=== PATIENT | male | born 1970 | race Caucasian/White ===

== ENCOUNTER 2017-01-09 09:56 | Emergency (ER) | payer OTHER ==
[2017-01-09] MEDS ORDERED: Sodium Chloride 0.9% 10 ML Syringe FLUSH PRN (09:57)
--- NOTE | 2017-01-09 10:05 | EDM.PDOC ---
ED HPI SEIZURE COMPLAINT - General Chief Complaint: Syncope Stated Complaint: SEIZURE Time Seen by Provider: 01/09/17 10:00 Source: Reports: Patient, EMS History Limitations: Reports: Other (Eye witness not available to describe seizure) - History of Present Illness INITIAL COMMENTS - FREE TEXT/NARRATIVE: 46 yo male presents from work via EMS after a self-limited seizure. Had another seizure yrs ago with no cause found. Is not on seizure meds. Did not bite his tongue or have urinary incontinence. Got a normal amount of sleep last night. Drinks 3-4 beers per day. Takes ibuprofen or naproxen most days for neck and back pain. No prescription meds. Symptom Onset Date: 01/09/17 Symptom Onset Time: 09:00 Timing/Duration: Reports: minutes:, resolved prior to arrival Event Occurred (Where): work Event (Witnessed/Unwitnessed): witnessed Location: Reports: generalized Quality: Reports: generalized shaking Severity: moderate Context: Reports: recent ETOH (Drinks a moderate amount daily, no recent change in alcohol dose or frequency.) Pre Event Symptom(s): Reports: other (none) Event Symptoms: Reports: syncope. Denies: incontinence, tongue biting Post Event Symptoms: Reports: confused, postictal duration: (minutes) Associated Injuries: Reports: other (no injuries) Treatment(s) GLOBAL PROFESSIONAL: Reports: Other (see below) (none) - Related Data Allergies/ADRs: Allergies Allergy/AdvReac Type Severity Reaction Status Date / Time No Known Allergies Allergy Verified 01/09/17 10:17 Home Meds: Home Meds NK [No Known Home Meds] 01/09/17 [History] ED ROS GENERAL - Review of Systems Review Of Systems: See Below Constitutional: Reports: no symptoms HEENT: Reports: No symptoms Respiratory: Reports: No Symptoms Cardiovascular: Reports: No symptoms Endocrine: Reports: no symptoms GI/Abdominal: Reports: No symptoms : Reports: no symptoms Musculoskeletal: Reports: no symptoms Skin: Reports: no symptoms Neurological: Reports: No Symptoms Psychiatric: Reports: No symptoms Hematologic/Lymphatic: Reports: no symptoms - Physical Exam Exam: See Below Exam Limited By: No limitations General Appearance: alert, WD/WN, no apparent distress Eye Exam: bilateral eye: normal inspection Ears: normal external exam, normal canal, hearing grossly normal Nose: normal inspection, normal mucosa, no blood Throat/Mouth: Normal inspection, Normal lips, Normal teeth, Normal gums, Normal oropharynx, Normal voice, No airway compromise Head Exam: atraumatic, normocephalic Neck: normal inspection, supple, non-tender Respiratory/Chest: no respiratory distress, lungs clear, normal breath sounds, no accessory muscle use Cardiovascular: regular rate, rhythm, no edema GI/Abdominal: normal bowel sounds, soft, non tender, no organomegaly, no distention Neuro Exam (Abbreviated): alert, oriented, CN II-XII intact, normal cognition, no motor/sensory deficits Back Exam: normal inspection Extremities: normal inspection, normal range of motion, non-tender, no pedal edema Psychiatric: normal affect, normal mood Skin Exam: Warm, Dry, Intact, Normal color, No rash Course - Vital Signs Text/Narrative:: saline lock- Head CT scan-negative Last Recorded V/S: Last Vital Signs Temp 36.4 C 01/09/17 10:00 Pulse 102 H 01/09/17 10:00 Resp 18 01/09/17 10:00 BP 141/79 H 01/09/17 10:00 Pulse Ox 97 01/09/17 10:00 - Orders/Labs/Meds Orders: Active Orders 24 hr Category Date Time Status Head wo Cont [CT] Stat Exams 01/09/17 10:13 Ordered Sodium Chloride 0.9% [Saline Flush] Med 01/09/17 09:57 Active 10 ml FLUSH ASDIRECTED PRN Saline Lock Insert [OM.PC] Routine Oth 01/09/17 09:57 Ordered Medication Orders Sodium Chloride (Saline Flush) 10 ml FLUSH ASDIRECTED PRN PRN Reason: Keep Vein Open Labs: Laboratory Tests 01/09/17 01/09/17 01/09/17 Range/Units 10:02 10:02 10:21 Sodium 133 L (135-145) mmol/L Potassium 3.7 (3.5-5.3) mmol/L Chloride 101 (100-110) mmol/L Carbon Dioxide 23 (23-29) mmol/L BUN 13 (5-20) mg/dL Creatinine 0.9 (0.6-1.3) mg/dL Est Cr Clr Drug Dosing TNP Estimated GFR (MDRD) > 60 (>60) BUN/Creatinine Ratio 14.4 (9-20) Glucose 107 (80-116) mg/dL Calcium 8.7 (8.6-10.2) mg/dL AST 39 H (5-27) IU/L Urine Opiates Screen Negative (NEGATIVE) Ur Oxycodone Screen Negative (NEGATIVE) Ur Propoxyphene Screen Negative (NEGATIVE) Ur Barbituates Screen Negative (NEGATIVE) Ur Tricyclics Screen Negative (NEGATIVE) Ur Phencyclidine Scrn Negative (NEGATIVE) Ur Amphetamine Screen Negative (NEGATIVE) Urine MDMA Screen Negative (NEGATIVE) U Benzodiazepines Scrn Negative (NEGATIVE) U Cocaine Metab Screen Negative (NEGATIVE) U Marijuana (THC) Screen Negative (NEGATIVE) Meds: Medications Generic Name Dose Route Start Last Admin Trade Name Freq PRN Reason Stop Dose Admin Sodium Chloride 10 ml 01/09/17 09:57 Saline Flush FLUSH ASDIRECTED PRN Keep Vein Open Departure - Departure Time of Disposition: 11:10 Disposition: Home, Self-Care 01 Condition: fair Clinical Impression: Seizure, Elevated AST (SGOT), Excessive consumption of ethanol - My Orders Last 24 Hours: My Active Orders 01/09/17 09:57 Sodium Chloride 0.9% [Saline Flush] 10 ml FLUSH ASDIRECTED PRN Saline Lock Insert [OM.PC] Routine 01/09/17 10:13 Head wo Cont [CT] Stat - Assessment/Plan Last 24 Hours: My Active Orders 01/09/17 09:57 Sodium Chloride 0.9% [Saline Flush] 10 ml FLUSH ASDIRECTED PRN Saline Lock Insert [OM.PC] Routine 01/09/17 10:13 Head wo Cont [CT] Stat
[2017-01-09 10:19] VITALS: BP 141/79
--- NOTE | 2017-01-09 11:01 | CT ---
INDICATION: First time seizure, unobserved this a.m. CT HEAD WITHOUT CONTRAST: Serial contiguous 2.5 and 5-mm sections were obtained through the brain without contrast only revealing no shift of midline structures, ventricular abnormalities, or abnormal areas of density. Total Exam DLP = 949.36 mGy-cm. No abnormality of the cranium was identified. Visualized paranasal sinuses appeared clear. IMPRESSION: Normal CT of the brain without contrast only. Report was called to Dr. Gaytan at 1052 hours. [facility]
== END 2017-01-09 11:30 | disposition home or self-care (01) ==
LOC: FB.ED 09:56
DX: R56.9 Unspecified convulsions (principal); R74.0 Nonspecific elevation of levels of transaminase and lactic acid dehydrogenase [LDH]; F10.10 Alcohol abuse, uncomplicated
CPT/HCPCS: 36415; 70450; 80048; 80305; 84450; 99285